=== PATIENT | male | born 1995 | race Caucasian/White ===

== ENCOUNTER 2017-11-04 09:01 | Emergency (ER) | payer OTHER ==
--- NOTE | 2017-11-04 10:39 | ER Document Report ---
ED General - General Chief Complaint: Fainting Stated Complaint: MOUTH PAIN Time Seen by Provider: 11/04/17 10:27 Mode of Arrival: Ambulatory Information source: Patient Notes: 21-year-old male presents with complaints of ulcerations inside his lip on the outside of his lip and under his tongue for a few day duration. Patient denies any nausea or vomiting admits to pain when he tries to eat. Patient notes yesterday he fainted after standing up all of a sudden. Patient denies any symptoms similar to that today. TRAVEL OUTSIDE OF THE [place] IN LAST 30 DAYS: No - HPI Onset: Last week Onset/Duration: Persistent Quality of pain: Sharp Severity: Mild Pain Level: 1 Associated symptoms: Other Exacerbated by: Food Relieved by: Denies Similar symptoms previously: Yes - Patient notes left sided electric pain for 2 years intermittnet - Related Data Allergies/Adverse Reactions: No Known Allergies Allergy (Unverified 11/04/17 09:04) Past Medical History - Social History Smoking Status: Current Every Day Smoker Cigarette use (# per day): Yes Chew tobacco use (# tins/day): No Smoking Education Provided: No Family History: Reviewed & Not Pertinent Review of Systems - Review of Systems Notes: REVIEW OF SYSTEMS: CONSTITUTIONAL : Denies fever, chills, or sweats. Denies recent illness. EENT: Admits to ulcerations of the mouth lips CARDIOVASCULAR: Denies chest pain. Denies palpitations or racing or irregular heart beat. Denies ankle edema. RESPIRATORY: Denies cough, cold, or chest congestion. Denies shortness of breath, difficulty breathing, or wheezing. GASTROINTESTINAL: Denies abdominal pain or distention. Denies nausea, vomiting , or diarrhea. Denies blood in vomitus, stools, or per rectum. Denies black, tarry stools. Denies constipation. GENITOURINARY: Denies difficulty urinating, painful urination, burning, frequency, blood in urine, or discharge. MUSCULOSKELETAL: Denies back or neck pain or stiffness. Denies joint pain or swelling. SKIN: Denies rash, lesions or sores. HEMATOLOGIC : Denies easy bruising or bleeding. LYMPHATIC: Denies swollen, enlarged glands. NEUROLOGICAL: Left-sided electric pain that happens intermittently maybe once every 8 months PSYCHIATRIC: Denies anxiety or stress. Denies depression, suicidal ideation, or homicidal ideation. ALL OTHER SYSTEMS REVIEWED AND NEGATIVE. Dictation was performed using [employer] voice recognition software PHYSICAL EXAMINATION: GENERAL: Well-appearing, well-nourished and in no acute distress. HEAD: Atraumatic, normocephalic. EYES: Pupils equal round and reactive to light, extraocular movements intact, sclera anicteric, conjunctiva are normal. Posterior ulcerations on the tongue upper lip lower lip and external lip ENT: Nares patent, oropharynx clear without exudates. Moist mucous membranes. NECK: Normal range of motion, supple without lymphadenopathy LUNGS: Breath sounds clear to auscultation bilaterally and equal. No wheezes rales or rhonchi. HEART: Regular rate and rhythm without murmurs ABDOMEN: Soft, nontender, nondistended abdomen. No guarding, no rebound. No masses appreciated. Musculoskeletal: Normal range of motion, no pitting or edema. No cyanosis. NEUROLOGICAL: Cranial nerves grossly intact. Normal speech, normal gait. Normal sensory, motor exams PSYCH: Normal mood, normal affect. SKIN: Warm, Dry, normal turgor, no rashes or lesions noted. Physical Exam - Vital signs Vitals: Temp Pulse Resp BP Pulse Ox 99.4 F 77 20 129/80 H 100 11/04/17 09:31 11/04/17 09:31 11/04/17 09:31 11/04/17 09:31 11/04/17 09:31 Course - Re-evaluation Re-evalutation: 11/04/17 10:47 The cluster ulceration is concerning for herpes, culture has been taking patient will be started on antiviral, will be given lidocaine for the pain. I believe his syncope was due to orthostatic hypotension since he has not been eating well, otherwise he looks well needs to follow-up with some primary care physician for this random intermittent electric pain Patient looks well is in no distress at this time After performing a Medical Screening Examination, I estimate there is LOW risk for ACUTE CORONARY SYNDROME, PULMONARY EMBOLI, RESPIRATORY FAILURE, SEPSIS OR MENINGITIS, thus I consider the discharge disposition reasonable. I have reevaluated this patient multiple times and no significant life threatening changes are noted. The patient and I have discussed the diagnosis and risks, and we agree with discharging home with close follow-up. We also discussed returning to the Emergency Department immediately if new or worsening symptoms occur. We have discussed the symptoms which are most concerning (e.g., changing or worsening pain, trouble swallowing or breathing, neck stiffness, fever) that necessitate immediate return. - Vital Signs Vital signs: Temp Pulse Resp BP Pulse Ox 99.1 F 94 18 131/78 H 100 11/04/17 09:36 11/04/17 09:36 11/04/17 09:36 11/04/17 09:36 11/04/17 09:36 Discharge - Discharge Clinical Impression: Oral ulceration Fainting Qualifiers: Syncope type: unspecified Qualified Code(s): R55 - Syncope and collapse Condition: Stable Disposition: HOME, SELF-CARE Instructions: [facility] ([facility]) Additional Instructions: Follow up with your physician tomorrow for further care or return to the ED IMMEDIATELY if symptoms worsen or new concerns occur. If you cannot afford to follow up with your primary care physician a list of low cost clinics have been provided at the end of your discharge papers as well. Prescriptions: Acyclovir [Acyclovir 400 mg Tablet] 400 mg PO Q8 #30 tablet Lidocaine HCl [Xylocaine Viscous] 5 ml PO Q6H PRN #100 ml PRN Reason:
[2017-11-04 10:53] VITALS: BP 136/78
== END 2017-11-04 10:53 | disposition home or self-care (01) ==
LOC: ER 09:01
DX: K12.1 Other forms of stomatitis (principal); R55 Syncope and collapse; K08.89 Other specified disorders of teeth and supporting structures; F17.210 Nicotine dependence, cigarettes, uncomplicated
CPT/HCPCS: 87250; 99282